=== PATIENT | male | born 1970 | race Two or more races ===

== ENCOUNTER 2022-05-29 08:19 | Emergency (ER) | payer SELFPAY ==
[2022-05-29 08:20] VITALS: BP 143/68; PULSE 109; RESP 16; TEMP 37.1; O2SAT 98; BMI 29.9
--- NOTE | 2022-05-29 08:37 | HMH.EDGENADL ---
Discharge Plan Disposition Patient Disposition: Home, Self-Care Condition: Good Chief Complaint: Abdominal Pain Referrals Follow up/Referrals: Provider,Referral, [Primary Care Provider] - See instructions Activity Restrictions/Add. Instructions Additional Instructions/Restrictions: Follow-up with your primary care provider for further care. Tylenol or ibuprofen as needed for pain. Call back for results of diarrhea panel. Clinical Impressions Clinical Impression: Diarrhea, Abdominal pain, Headache, Cramps, muscle, general Instructions Patient Instructions: DI for Acute Abdominal Pain Discharge ED Provider: Carlos Alberto Quezada General Adult HPI General Chief complaint: Abdominal Pain Stated complaint: Muscle spasms, diarrea, stomach pain Time Seen by Provider: 05/29/22 08:37 Mode of Arrival: Ambulatory Source of Information: Patient Limitations: No Limitations Description of Symptoms (Recalled from ER Triage Doc. by RN): to ed per pvt car with c/o abd pain and cramping, nausea, diarrhea, headache, muscle cramping x 1month. pt states seen by pcp 1 week ago dx with ear infection given antibiotics. denies fever, chills, or blood in stool. History of Present Illness HPI narrative: Patient states he has been sick for 1 month. He has a constant headache, diarrhea, diffuse muscle cramping, abdominal pains. Upper abdo pain comes and goes, but lower abdo pain is constant. Denies vomiting, but says that he has bad gas/belching. He has pain behind his ears, decreased hearing. Denies rhinorrhea or sore throat. Denies fever. He saw his primary care provider 3 weeks ago and was given an antibiotic for his ears. States he had a negative COVID test at that time. He says no blood work or stool sample was done. States he has taken [id number] medication for diarrhea and will get relief for several hours, but then it comes back. He has had 1 diarrhea stool today, 3 or 4 yesterday Last travel was 6 months ago to [facility]. Related Data Allergies Allergy/AdvReac Type Severity Reaction Status Date / Time No Known Allergies Allergy Verified 05/29/22 08:35 [facility] Medical History (Updated 05/29/22 @ 11:32 by Carlos Alberto Quezada MD) Rotator cuff disorder Social History Smoking Status: Current every day smoker ROS Obtained: Yes Systems reviewed as appropriate & no additional complaints except as documented Constitutional Constitutional: Denies fever(s), Reports headache(s) and Denies weakness ENT Ears, Nose, Mouth, and Throat: Reports headache(s), Reports hearing loss, Denies nasal discharge and Denies sore throat Cardiovascular Cardiovascular: Denies chest pain Respiratory Respiratory: Denies shortness of breath and Denies cough Gastrointestinal Gastrointestingal: Reports abdominal pain and diarrhea; Denies constipation, hematochezia, melena or vomiting Genitourinary Male Genitourinary: Denies difficulty urinating and Denies flank pain Musculoskeletal Musculoskeletal: Reports muscle cramps and Denies numbness Neurologic Neurologic: Reports headache(s), Denies numbness and Denies weakness Physical Exam General General appearance: alert and in no apparent distress Head Head exam: atraumatic and normocephalic Eye Eye exam: Present normal appearance and EOMI ENT ENT exam: Present normal oropharynx, mucous membranes moist and TM's normal bilaterally Neck Neck exam: Present normal inspection and trachea midline Chest Chest inspection: Present normal inspection and symmetric chest wall rise Respiratory Respiratory exam: Present normal lung sounds bilaterally; Absent respiratory distress Cardiovascular Cardiovascular exam: Present regular rate, normal rhythm and normal heart sounds Abdominal Exam Abdominal exam: Present soft, tenderness and normal bowel sounds; Absent distention, guarding, rebound or rigidity Abdominal tenderness: Present RUQ Extremities Exam Extremities exam: Present normal inspection Zhao
[2022-05-29 08:42] LABS: Microscopic, Urine URINE MICROSCOPIC (MICROSCOPIC)
[2022-05-29 08:52] LABS: Appearance,Urine SL CLOUDY (Clear); Bilirubin,Urine Negative (Negative); Blood, Urine Negative (Negative); Color,Urine DK YELLOW (Yellow); Glucose,Urine (UA) Negative (Negative); Ketones,Urine Negative (Negative); Leukocyte Esterase,Urine Negative (Negative); Nitrate,Urine Negative (Negative); Protein,Urine Negative (Negative); Urobilinogen,Urine 0.2 EU/dl (0.2)
[2022-05-29 08:54] LABS: Basophils # 0.1 K/mm3 (0-0.2); Basophils % 1.2 % (0.1-2.0); Eosinophils # 0.1 K/mm3 (0.0-0.4); Eosinophils % 1.1 % (0.1-12.0); Hematocrit 52.3 % (42.0-52.0); Hemoglobin 17.2 g/dL (14.1-18.0); Lymphocytes # 2.3 K/mm3 (0.7-4.5); Lymphocytes % 27.1 % (10-50); Mean Corpuscular HGB Conc 32.8 g/dL (31.8-35.4); Mean Corpuscular Hemoglobin 30.2 pg (27.0-31.2); Monocytes # 0.4 K/mm3 (0.1-1.0); Neutrophils # 5.6 K/mm3 (1.8-7.8); Neutrophils % 65.7 % (37.0-80.0); Platelet Count 265 K/mm3 (142-424); Red Blood Count 5.68 M/mm3 (4.60-6.20); Red Cell Distribution Width 14.2 % (11.5-17.5); White Blood Count 8.5 K/mm3 (4.8-10.8)
[2022-05-29 08:55] LABS: Chloride 102 mmol/L (98-107); Potassium 4.2 mmoL/L (3.5-5.1); Sodium 141 mmol/L (136-145)
[2022-05-29 08:56] LABS: Coronavirus 19, PCR Not Detected (NotDetected); Influenza A, PCR Not Detected (NotDetected); Influenza B, PCR Not Detected (NotDetected)
[2022-05-29 09:03] LABS: Lipase 144 U/L (23-300)
[2022-05-29 09:04] LABS: Alanine Aminotransferase 38 U/L (12-78); Albumin Level 4.9 g/dl (3.5-5.0); Albumin/Globulin Ratio 1.6 (1.1-1.8); Alkaline Phosphatase 108 U/L (38-126); Anion Gap 15.2 mEq/L (5-15); Aspartate Amino Transferase 41 U/L (17-59); Bilirubin,Total 0.9 mg/dl (0.2-1.3); Blood Urea Nitrogen 13 mg/dl (9-20); Calcium 9.8 mg/dl (8.4-10.2); Carbon Dioxide 30 mmol/L (22.0-30.0); Creatinine Clearance Estimated 144 mL/min (50-200); Estimated Glomerular Filt Rate 119 ml/min (>60); GFR (African American) 144 ML/MIN (>60); Globulin 3.1 g/dL (1.3-3.2); Glucose 117 mg/dl (74-100)
[2022-05-29 09:15] LABS: WBC,Urine Occasional #/hpf (0-3)
[2022-05-29 09:16] LABS: Squamous Epithelial Cell,Urine Occasional #/hpf (0-5)
--- NOTE | 2022-05-29 09:42 | PC.NURSE ---
up ambulatory to bathroom with steady gait
--- NOTE | 2022-05-29 09:48 | US_ITS ---
FINAL REPORT CLINICAL HISTORY: abdo pain FINDINGS: Ultrasound images of the right upper quadrant were obtained. The liver parenchyma is increased in echogenicity. The gallbladder is well visualized and the wall appears normal. There is a trace amount of sludge in the gallbladder. There are no gallstones. The common duct is normal. Limited images of the right kidney are unremarkable. IMPRESSION: Fatty liver. Trace amount of sludge in the gallbladder. Reviewed, Interpreted and Dictated by Salvador Ya III, MD Transcribed by Patricio Espinoza Authenticated and [facility]
--- NOTE | 2022-05-29 09:48 | CT_ITS ---
FINAL REPORT CLINICAL HISTORY: abdo pain FINDINGS: Axial images of the head were obtained without contrast. Coronal reformatted images were also obtained.This study was performed with techniques to keep radiation doses as low as reasonably achievable (ALARA). Individualized dose reduction techniques using automated exposure control or adjustment of mA and/or kV according to the patient's size were employed. There is no evidence of intracranial hemorrhage or mass. The ventricular size is within normal limits. There is no evidence of shift of the midline structures. No abnormal extra axial fluid collection is identified. No skull abnormality is seen on the bone window images. There is mild mucosal thickening of the sinuses. IMPRESSION: No acute intracranial abnormality. Reviewed, Interpreted and Dictated by Salvador Ya III, MD Transcribed by Zeinab Ascencio Authenticated and . [facility]
--- NOTE | 2022-05-29 09:48 | CT_ITS ---
FINAL REPORT CLINICAL HISTORY: abdo pain, diarrhea FINDINGS: CT OF THE ABDOMEN AND PELVIS WITH CONTRAST Axial CT images of the abdomen and pelvis were obtained after the administration of IV contrast. Coronal reformatted images were also obtained and reviewed.This study was performed with techniques to keep radiation doses as low as reasonably achievable (ALARA). Individualized dose reduction techniques using automated exposure control or adjustment of mA and/or kV according to the patient's size were employed. Abdomen: The lung bases are clear. The heart is normal in size. There is mild fatty infiltration of the liver. The gallbladder is present. The spleen is unremarkable. No adrenal mass is present. The pancreas has an unremarkable appearance. The kidneys are normal, without evidence of mass or hydronephrosis. The aorta is normal in caliber. There is no free fluid or adenopathy. No mass or abnormal fluid collection is seen. Pelvis: The appendix normal. There is mild urinary bladder wall thickening which may be inflammatory. There is no evidence of mass or adenopathy. There is no evidence of bowel obstruction. There is a small left inguinal hernia containing fat. IMPRESSION: Mild fatty liver. Mild bladder wall thickening, may be inflammatory. Reviewed, Interpreted and Dictated by Salvador Ya III, MD Transcribed by Zeinab Ascencio Authenticated and [facility]
[2022-05-29 09:50] LABS: Adenovirus F 40/41, stool Not Detected (NotDetected); Astrovirus Not Detected (NotDetected); Campylobacter Not Detected (NotDetected); Clostridium Difficile A/B, PCR Not Detected (NotDetected); Cryptosporidium Not Detected (NotDetected); Cyclospora Cayetanesis Not Detected (NotDetected); Entamoeba histolytica Not Detected (NotDetected); Enteroaggregative E coli Not Detected (NotDetected); Enteropathogenic E coli Not Detected (NotDetected); Enterotoxigenic E coli Not Detected (NotDetected); Giardia lamblia Not Detected (NotDetected); Norovirus Not Detected (NotDetected); Plesimonas Shigalloides, PCR Not Detected (NotDetected); Rotavirus A Not Detected (NotDetected); Salmonella, PCR Not Detected (NotDetected); Sapovirus Not Detected (NotDetected); Shiga-like toxin E coli Not Detected (NotDetected); Shigella Enterovasive E coli Not Detected (NotDetected); Vibrio Cholerae Not Detected (NotDetected); Vibrio, PCR Not Detected (NotDetected); Yersinia Entercolitica, PCR Not Detected (NotDetected)
[2022-05-29 10:05] LABS: C-Reactive Protein 1.2 mg/L (0-4)
[2022-05-29 10:14] LABS: Erythrocyte Sedimentation Rate 1 mm/hr (0-20)
[2022-05-29 10:19] VITALS: BP 143/98; PULSE 63; O2SAT 99
[2022-05-29 11:08] VITALS: BP 165/92; PULSE 70
[2022-05-29 12:04] VITALS: BP 139/74; PULSE 68; RESP 16; TEMP 36.6; O2SAT 98
--- NOTE | 2022-05-29 13:03 | PC.NURSE ---
pt called and informed of negative stool studies.
== END 2022-05-29 13:04 | disposition home or self-care (01) ==
PROVIDERS: Emergency Provider Emergency Medicine
DX: R19.7 Diarrhea, unspecified (principal); R10.9 Unspecified abdominal pain; R51.9 Headache, unspecified; R25.2 Cramp and spasm
CPT/HCPCS: 70450; 74177; 76705; 80053; 81001; 83690; 85025; 85651; 86140; 87506; 96365; 96375; 96376; 99285; C9803; J2405; Q9967; U0003; U0005